=== PATIENT | female | born 1940 | race Caucasian/White ===

== ENCOUNTER → 2020-08-18 15:14 | Outpatient (BNVA) | payer MEDICARE, SELFPAY | PROVIDERS: PCP Internal Medicine; Visit Provider Urology | DX: Z13.89 Encounter for screening for other disorder (principal) | CPT/HCPCS: 99212 ==

== ENCOUNTER → 2020-11-10 14:02 | Outpatient (BNVA) | payer MEDICARE, SELFPAY | DX: N20.0 Calculus of kidney (principal); Z87.440 Personal history of urinary (tract) infections | CPT/HCPCS: 81002; 99212 ==

== ENCOUNTER 2021-04-06 15:07 | Outpatient (REF) | payer MEDICARE, SELFPAY ==
--- NOTE | ~2021-04-06 | US_ITS ---
EXAMINATION: US RETROPERITONEAL LIMITED (RENAL ONLY) CLINICAL INFORMATION: Calculus of kidney. COMPARISON: US retroperitoneal limited (renal only) 05/07/2018 and 03/21/2017. TECHNIQUE: Real-time imaging of the kidneys. FINDINGS: RIGHT KIDNEY: 8.8 x 3.4 x 4.2 cm (SAG x AP x TRV). The kidney is normal in size, contour, and echogenicity. There may be right renal cortical thinning or scarring. There are multiple at least 4 simple right renal cysts. The largest measures 1.4 x 1 x 1.2 cm in the upper pole. No renal calculi or hydronephrosis. LEFT KIDNEY: 7.0 x 3.5 x 3.5 cm (SAG x AP x TRV). The kidney is normal in size, contour, and echogenicity. There is left renal cortical thinning or scarring. There is a 1.3 x 1 x 1.1 cm simple cyst in the lower pole. No renal calculi or hydronephrosis. US/US renal BI IMPRESSION: Bilateral renal cortical thinning or scarring. Bilateral renal cysts, right greater than left.
== END 2021-04-06 15:08 | disposition home or self-care (01) ==
LOC: HO.US 15:07
PROVIDERS: PCP Internal Medicine
DX: N20.0 Calculus of kidney (principal)
CPT/HCPCS: 76775

== ENCOUNTER 2022-03-22 12:17 | Outpatient (REF) | payer MEDICARE, SELFPAY ==
--- NOTE | ~2022-03-22 | US_ITS ---
EXAMINATION: US RETROPERITONEAL LIMITED (RENAL ONLY) CLINICAL INFORMATION: Calculus of kidney. COMPARISON: Renal ultrasound 04/06/2021 and 05/07/2018. X-ray abdomen KUB 01/19/2011. TECHNIQUE: Real-time imaging of the kidneys. FINDINGS: RIGHT KIDNEY: 8.4 x 3.2 x 3.7 cm (SAG x AP x TRV). The kidney is normal in size, contour, and echogenicity. Renal cortical thickness is normal. No renal calculi or hydronephrosis. At the upper pole, a 1.3 cm in maximal diameter anechoic, simple cyst is seen. At the interpolar aspect, 8 mm, 8 mm and 5 mm anechoic, simple cysts are seen. At the lower pole, a 1.4 cm in maximal diameter anechoic, simple cyst is seen. LEFT KIDNEY: 8.4 x 4.5 x 3.4 cm (SAG x AP x TRV). The kidney is normal in size, contour, and echogenicity. Renal cortical thickness is normal. No renal calculi or hydronephrosis. At the upper pole, 1.2 cm and 9 mm in maximal diameter anechoic, simple cysts are seen. At the lower pole, a 9 mm in maximal diameter anechoic, simple cyst is seen. At the interpolar aspect, an 8 x 7 x 8 mm mildly complex cyst is seen, with solitary fine septation. This shows no mural nodularity or associated color Doppler flow. On the ultrasound examination dated 05/07/2018, this measured 0.9 x 1.0 x 1.1 cm. US/US renal BI IMPRESSION: 1. There are multiple bilateral renal cysts. The majority are benign, simple and require no imaging follow-up. A stable 1.2 cm in maximal diameter mildly complex left renal interpolar cyst is seen, with single fine septation. 2. No renal mass, calculus or hydronephrosis is seen bilaterally.
== END 2022-03-22 12:18 | disposition home or self-care (01) ==
LOC: HO.US 12:17
PROVIDERS: PCP Internal Medicine; Visit Provider Urology
DX: N20.0 Calculus of kidney (principal)
CPT/HCPCS: 76775

== ENCOUNTER → 2022-04-26 13:23 | Outpatient (BNVA) | payer MEDICARE, SELFPAY | PROVIDERS: PCP Internal Medicine; Visit Provider Nurse Practitioner Family | DX: N20.0 Calculus of kidney (principal); N28.1 Cyst of kidney, acquired | CPT/HCPCS: 99212 ==

== ENCOUNTER 2023-04-11 13:34 | Outpatient (REF) | payer MEDICARE, SELFPAY ==
--- NOTE | ~2023-04-11 | US_ITS ---
EXAMINATION: US RETROPERITONEAL LIMITED (RENAL ONLY) CLINICAL INFORMATION: Calculus of kidney. COMPARISON: Renal ultrasound 03/22/2022 and 04/06/2021. TECHNIQUE: Real-time imaging of the kidneys. Limited visualization due to bowel gas. FINDINGS: RIGHT KIDNEY: 9.5 x 4.6 x 4.0 cm (SAG x AP x TRV). Upper pole 1.2 cm and 0.9 cm cysts. Mid pole 1.3 cm cyst. There is no indication for follow-up imaging. Upper pole 1.9 x 1.2 x 1.5 cm cyst with benign features. A few additional smaller cysts, some of which are difficult to characterize due to small size and bowel gas. No hydronephrosis. No renal calculi. Limited visualization. LEFT KIDNEY: 9.3 x 3.8 x 4.0 cm (SAG x AP x TRV). No hydronephrosis. No renal calculi. Limited visualization. Upper pole 1.4 cm and 1.1 cm cysts. Lower pole 0.9 cm cyst and 0.7 cm cyst. There is no indication for follow-up imaging. Midpole 0.8 x 0.6 x 0.5 cm cyst measured 0.8 x 0.7 x 0.8 cm on 03/22/2022 and demonstrated a fine septation at that time which is less visible today, possibly due to bowel gas. This measured 0.9 x 1.0 x 1.1 cm on 05/07/2018. US/US renal BI IMPRESSION: No hydronephrosis. No renal calculi. Limited visualization.
== END 2023-04-11 13:35 | disposition home or self-care (01) ==
LOC: HO.US 13:34
PROVIDERS: PCP Internal Medicine; Visit Provider Nurse Practitioner Family
DX: N20.0 Calculus of kidney (principal); N28.1 Cyst of kidney, acquired
CPT/HCPCS: 76775

== ENCOUNTER 2023-04-25 13:29 | Outpatient (AMB) | payer MEDICARE, SELFPAY ==
--- NOTE | 2023-04-25 13:36 | MHC.OFFVIS ---
Intake Intake Visit Reasons: 1y/US(set) Intake Note: Patient is present for follow up nephrolithiasis [facility] Medications: none Blood thinner: none Overnight Stocker Required: No Accompanied by: Unknown Allergies sulfamethizole Adverse Reaction (Verified 04/25/23 14:04) Nausea Medication List - Last Reconciled 04/25/23 by LATA Valerio acetaminophen 1,000 mg PO TID alendronate 70 mg PO QWEEK apixaban (Eliquis) 5 mg PO BID ascorbic acid (vitamin C) 1 g PO DAILY atorvastatin 40 mg PO BEDTIME ergocalciferol (vitamin D2) (Vitamin D2) 1,250 mcg PO QWEEK fluticasone propionate 110 mcg/actuation (Flovent HFA) 1 puff inhalation BID mupirocin 2% topical BID nifedipine ER 30 mg PO DAILY pregabalin 100 mg PO DAILY sennosides-docusate sodium 8.6-50 mg 1 tab PO BID PRN tiotropium bromide 1.25 mcg/actuation (Spiriva Respimat) 2 puffs inhalation BEDTIME tramadol 50 mg PO Q4H PRN umeclidinium-vilanterol 62.5-25 mcg/actuation 1 ea inhalation DAILY valsartan 160 mg PO DAILY verapamil ER 120 mg PO DAILY HPI HPI Comments History of Present Illness Details Juliet is a pleasant 82-year-old female patient of Dr. Sparks who is accompanied by her at today's visit. She has a past medical history of shingles, arthritis, and GERD. She is being follow-up on today for her history of nephrolithiasis as well as renal cysts. Recent renal ultrasound results reviewed with the patient and her today. Right kidney with upper pole 1.2 cm and 0.9 cm cysts. Mid pole 1.3 cm cyst. There is no indication for follow-up imaging per radiology report. Upper pole 1.9 x 1.2 x 1.5 cm cyst with benign features. A few additional smaller cysts, some of which are difficult to characterize due to small size and bowel gas. No hydronephrosis. No renal calculi. Limited visualization. Left kideny with no hydronephrosis. No renal calculi. Limited visualization. Upper pole 1.4 cm and 1.1 cm cysts. Lower pole 0.9 cm cyst and 0.7 cm cyst. There is no indication for follow-up imaging per radiology report. In discussion with the patient today she discusses her recent fall and her recent stay at [facility] for rehab. She reports she continues to follow-up with orthopedics for ongoing right shoulder pain. She discusses feeling she has been unable to perform shoulder exercises at home due to ongoing pain. She has recently been started on tramadol and has found this somewhat helpful. In discussion with the patient today regarding her urological issues and concerns she does report feeling somewhat bothered symptoms of urinary urgency, urinary frequency, and episodes of incontinence if not near a bathroom. However, she feels given her decreased mobility over the last few months this has contributed to her ability to get to the bathroom in time. She describes lower urinary tract symptoms to be variable. She otherwise denies hematuria, dysuria, foul smelling urine, changes to urinary stream, flank pain, fever, and or chills. Discussed lifestyle modifications to assist with urinary issues with timed/scheduled voiding, pelvic floor therapy, and or medications. In office urinalysis results reviewed with the patient today. She otherwise offers no other issues or concerns at this time. [facility] Medical History Shingles Arthritis GERD (gastroesophageal reflux disease) Arthritis Renal stones Surgical History History of surgery History of right hip replacement Family History Father No problems noted. Mother No problems noted. Social History Alcohol intake: never Patient Tobacco Use Status: Former Tobacco user Review of Systems Eyes Reports no additional complaints ENT Reports no additional complaints Card Reports no additional complaints Resp Reports no additional complaints GI Reports as per HPI Reports as per HPI Musc Reports as per HPI Neuro Reports no additional complaints Psych Reports no additional complaints Endo Reports no additional complaints Andre/Lymph Reports no additional complaints Aller/Immun Reports no additional complaints Physical Exam Const General: cooperative, healthy appearing, comfortable, no acute distress, well developed, alert and awake Nutritional Appearance: average body habitus and well nourished Orientation/consciousness: patient oriented x3 Limitations: ambulation with walker HEENT Head: Yes normocephalic Ears: hearing grossly normal bilaterally Eyes General: appearance normal, both eyes and all related structures Neck Neck: Yes normal visual inspection Chest Chest palpation & inspection: normal inspection of the chest Resp Effort & Inspection: normal respiratory effort and no cough Cardio Rate: regular rate Neuro General: patient oriented x3 Cognition (Neuro): normal cognition Gait exam (Neuro): Assistive device used (Ambulatory with a cane) Psych Appearance: grossly normal and well kempt Mental Status: mental status grossly normal Speech and movement: Normal speech and movement present Affect: normal affect Attitude: cooperative Thought process: Normal thought process present Insight: Fair insight present (Psych) Judgement: Fair judgement present (Psych) Results AMB Urinalysis, Automated UA Leukoctes 0 Jorge/uL Last Edit by [employer] on 04/25/23 14:03 UA Nitrite Negative Last Edit by [employer] on 04/25/23 14:03 UA Urobilinogen 0.2 mg/dL Last Edit by [employer] on 04/25/23 14:03 UA Protein 100 mg/dL Last Edit by [employer] on 04/25/23 14:03 UA pH 6.0 Last Edit by [employer] on 04/25/23 14:03 UA Blood 0 Gucci/uL Last Edit by [employer] on 04/25/23 14:03 UA Specific [place] 1.015 Last Edit by [employer] on 04/25/23 14:03 UA Ketone Negative Last Edit by [employer] on 04/25/23 14:03 UA Bilirubin 0 mg/dL Last Edit by [employer] on 04/25/23 14:03 UA Glucose 0 mg/dL Last Edit by [employer] on 04/25/23 14:03 Results Reviewed Results Reviewed: Laboratory Last Values Urine pH (Auto) 6.0 04/25/23 13:40 Specific [place] (Auto) 1.015 04/25/23 13:40 Urine Protein (Auto) 100 mg/dL 04/25/23 13:40 Glucose (UA)(Auto) 0 mg/dL 04/25/23 13:40 Urine Ketones (Auto) Negative 04/25/23 13:40 Urine Blood (Auto) 0 Gucci/uL 04/25/23 13:40 Urine Nitrite (Auto) Negative 04/25/23 13:40 Urine Bilirubin (Auto) 0 mg/dL 04/25/23 13:40 Urine Urobilinogen (Auto) 0.2 mg/dL 04/25/23 13:40 Leukocyte Esterase (Auto) 0 Jorge/uL 04/25/23 13:40 Date of Service: 04/11/23 EXAMINATION: US RETROPERITONEAL LIMITED (RENAL ONLY) FINDINGS: RIGHT KIDNEY: 9.5 x 4.6 x 4.0 cm (SAG x AP x TRV). Upper pole 1.2 cm and 0.9 cm cysts. Mid pole 1.3 cm cyst. There is no indication for follow-up imaging. Upper pole 1.9 x 1.2 x 1.5 cm cyst with benign features. A few additional smaller cysts, some of which are difficult to characterize due to small size and bowel gas. No hydronephrosis. No renal calculi. Limited visualization. LEFT KIDNEY: 9.3 x 3.8 x 4.0 cm (SAG x AP x TRV). No hydronephrosis. No renal calculi. Limited visualization. Upper pole 1.4 cm and 1.1 cm cysts. Lower pole 0.9 cm cyst and 0.7 cm cyst. There is no indication for follow-up imaging. Midpole 0.8 x 0.6 x 0.5 cm cyst measured 0.8 x 0.7 x 0.8 cm on 03/22/2022 and demonstrated a fine septation at that time which is less visible today, possibly due to bowel gas. This measured 0.9 x 1.0 x 1.1 cm on 05/07/2018. IMPRESSION: No hydronephrosis. No renal calculi. Limited visualization. Assessment & Plan Assessment & Plan (1) Renal cyst: Code(s): N28.1 - Cyst of kidney, acquired (2) Renal stones: Code(s): N20.0 - Calculus of kidney (3) Lower urinary tract symptoms: Code(s): R39.9 - Unspecified symptoms and signs involving the genitourinary system (4) Urinary frequency: Code(s): R35.0 - Frequency of micturition (5) Urinary urgency: Code(s): R39.15 - Urgency of urination Plan In office urinalysis results reviewed with the patient today; as noted above. Recent renal imaging results reviewed with the patient today; as noted above. Will continue with surveillance monitoring of nephrolithiasis as well as renal cysts. Discussed at length further treatment options for urinary urgency and urinary frequency; this was discussed at length. Patient reports lower urinary tract symptoms to be variable. She will continue with lifestyle modifications at this time. Discussed possible low-dose VESIcare. Discussed bladder triggers/irritants. Discussed timed/scheduled voiding. Continue to follow-up with orthopedics for ongoing shoulder discomfort. Discussed referral to pelvic floor therapy. Follow-up in 3 months with PVR; or sooner with any issues, concerns, and or questions. Orders: Orders AMB Urinalysis Automated 04/25/23 Z13.9 - Encounter for screening, unspecified Patient Instructions: The patient had an opportunity to ask questions regarding the treatment plan. All questions were answered. Physical exam, labs, and imaging were discussed and reviewed in detail. As well as risks, benefits, and discussion of treatment choices. No major barriers to understanding were identified. The patient expressed understanding and agreement with the above treatment plan. The patient was made aware they should contact our office by phone for worsening of their current condition, the appearance of new symptoms, or with any questions or concerns. Compliance is encouraged with any medications and follow up testing that is ordered. It is a privilege to be allowed the opportunity to participate in? your urological care.? Again, if you have any questions or concerns If you have any questions or concerns please do not hesitate to contact me. The office is [phone]. This note is constructed using voice recognition software. While every effort has been made to ensure accuracy flush tester errors may have been included. Yours sincerely, LATA Valerio Coding Level of Care Code Est Pt Level 4 (84401) Diagnoses Renal cyst N28.1 Renal stones N20.0 Lower urinary tract symptoms R39.9 Urinary frequency R35.0 Urinary urgency R39.15 Time Spent (min) 40
== END 2023-04-25 14:29 | disposition home or self-care (01) ==
PROVIDERS: Visit Provider Nurse Practitioner Family
DX: N28.1 Cyst of kidney, acquired (principal); N20.0 Calculus of kidney; R39.9 Unspecified symptoms and signs involving the genitourinary system; R35.0 Frequency of micturition; R39.15 Urgency of urination
CPT/HCPCS: 99214

== ENCOUNTER → 2023-04-25 13:29 | Outpatient (BNVA) | payer MEDICARE, SELFPAY | PROVIDERS: Visit Provider Nurse Practitioner Family | DX: N28.1 Cyst of kidney, acquired (principal); N20.0 Calculus of kidney; R39.9 Unspecified symptoms and signs involving the genitourinary system; R35.0 Frequency of micturition; R39.15 Urgency of urination | CPT/HCPCS: 81003; 99212 ==

== ENCOUNTER 2023-08-29 15:30 | Outpatient (AMB) | payer MEDICARE, SELFPAY ==
--- NOTE | 2023-08-29 15:31 | A.OFFVIS_ITS ---
Intake Visit Reasons: 3m/PVR Intake Note: Patient is present for follow up nephrolithiasis Urology Medications: none Blood thinner: none PVR: 29ml's Almond Sorter Required: No Accompanied by: Unknown Allergies sulfamethizole Adverse Reaction (Verified 08/30/23 15:00) Nausea Medication List - Last Reconciled 08/30/23 by KO Valerio-CHANTELLE acetaminophen 1,000 mg PO TID alendronate 70 mg PO QWEEK apixaban (Eliquis) 5 mg PO BID ascorbic acid (vitamin C) 1 g PO DAILY atorvastatin 40 mg PO BEDTIME ergocalciferol (vitamin D2) (Vitamin D2) 1,250 mcg PO QWEEK fluticasone propionate 110 mcg/actuation (Flovent HFA) 1 puff inhalation BID mupirocin 2% topical BID nifedipine ER 30 mg PO DAILY pregabalin 100 mg PO DAILY sennosides-docusate sodium 8.6-50 mg 1 tab PO BID PRN tiotropium bromide 1.25 mcg/actuation (Spiriva Respimat) 2 puffs inhalation BEDTIME tramadol 50 mg PO Q4H PRN umeclidinium-vilanterol 62.5-25 mcg/actuation 1 ea inhalation DAILY valsartan 160 mg PO DAILY verapamil ER 120 mg PO DAILY HPI Comments Details: Juliet is a pleasant 82-year-old female patient of Dr. Sparks who is accompanied by her at today's visit. She has a past medical history of shingles, arthritis, and GERD. She is being follow-up on today for her history of nephrolithiasis, renal cysts and ongoing lower urinary tract symptoms. In discussion with the patient today she reports recently being diagnosed with melanoma in his following up with is today Oncology. She discusses having had recent bone marrow biopsy noting possible melanoma and is following up to discussed further treatment options. She discusses feeling fatigued throughout the day and will nap and then has difficulty with falling and staying asleep. She reports feeling this is contributing to episodes of nocturia. Previous renal ultrasound 04/12 noted right kidney with upper pole 1.2 cm and 0.9 cm cysts. Mid pole 1.3 cm cyst. There is no indication for follow-up imaging per radiology report. Upper pole 1.9 x 1.2 x 1.5 cm cyst with benign features. A few additional smaller cysts, some of which are difficult to characterize due to small size and bowel gas. No hydronephrosis. No renal calculi. Limited visualization. Left kideny with no hydronephrosis. No renal calculi. Limited visualization. Upper pole 1.4 cm and 1.1 cm cysts. Lower pole 0.9 cm cyst and 0.7 cm cyst. There is no indication for follow-up imaging per radiology report. She reports she continues to follow-up with orthopedics for ongoing right shoulder pain and bilateral knee pain. In discussion with the patient today regarding her urological issues and concerns she does report feeling somewhat bothered by symptoms of urinary urgency, urinary frequency, and episodes of incontinence if not near a bathroom and nocturia. However, she feels they are mangeable and does not wish to undergo further treatment at this time. She discusses she would like to continue with lifestyle modifications with timed/scheduled voiding given decreased mobility and limiting fluids 2-3 hours prior to bed. She otherwise denies hematuria, dysuria, foul smelling urine, changes to urinary stream, flank pain, fever, and or chills. In office urinalysis results reviewed with the patient today. PVR 29ml's. She otherwise offers no other issues or concerns at this time. [facility] Medical History Shingles Arthritis GERD (gastroesophageal reflux disease) Arthritis Renal stones Surgical History History of surgery History of right hip replacement Family History Father No problems noted. Mother No problems noted. Social History Alcohol intake: never Patient Tobacco Use Status: Former Tobacco user Review of Systems Eyes Reports no additional complaints ENT Reports no additional complaints Card Reports no additional complaints Resp Reports no additional complaints GI Reports as per HPI Reports as per HPI Musc Reports as per HPI Neuro Reports no additional complaints Psych Reports no additional complaints Endo Reports no additional complaints Andre/Lymph Reports as per HPI Aller/Immun Reports no additional complaints Physical Exam Const General: cooperative, healthy appearing, comfortable, no acute distress, well developed, alert and awake Nutritional Appearance: average body habitus and well nourished Orientation/consciousness: patient oriented x3 Limitations: wheelchair HEENT Head: Yes normocephalic Ears: hearing grossly normal bilaterally Eyes General: appearance normal, both eyes and all related structures Neck Neck: Yes normal visual inspection Chest Chest palpation & inspection: normal inspection of the chest Resp Effort & Inspection: normal respiratory effort and no cough Cardio Rate: regular rate Neuro General: patient oriented x3 Cognition (Neuro): normal cognition Gait exam (Neuro): Assistive device used (Ambulatory with a cane) Psych Appearance: grossly normal and well kempt Mental Status: mental status grossly normal Speech and movement: Normal speech and movement present Affect: normal affect Attitude: cooperative Thought process: Normal thought process present Insight: Fair insight present (Psych) Judgement: Fair judgement present (Psych) Office Procedures Post Void Residual Post Residual Void Post Void Residual (PVR): 29 [id number] Void Residual by ultrasound Results AMB Urinalysis, Automated UA Leukoctes 0 Jorge/uL Last Edit by [employer] on 08/29/23 16:13 UA Nitrite Negative Last Edit by [employer] on 08/29/23 16:13 UA Urobilinogen 0.2 mg/dL Last Edit by [employer] on 08/29/23 16:13 UA Protein 30 mg/dL Last Edit by [employer] on 08/29/23 16:13 UA pH 6.0 Last Edit by [employer] on 08/29/23 16:13 UA Blood 10 Gucci/uL Last Edit by [employer] on 08/29/23 16:13 UA Specific [place] 1.010 Last Edit by [employer] on 08/29/23 16:13 UA Ketone Negative Last Edit by [employer] on 08/29/23 16:13 UA Bilirubin 0 mg/dL Last Edit by [employer] on 08/29/23 16:13 UA Glucose 0 mg/dL Last Edit by [employer] on 08/29/23 16:13 Results Reviewed Results Reviewed: Laboratory Last Values Urine pH (Auto) 6.0 08/29/23 16:11 Specific [place] (Auto) 1.010 08/29/23 16:11 Urine Protein (Auto) 30 mg/dL 08/29/23 16:11 Glucose (UA)(Auto) 0 mg/dL 08/29/23 16:11 Urine Ketones (Auto) Negative 08/29/23 16:11 Urine Blood (Auto) 10 Gucci/uL 08/29/23 16:11 Urine Nitrite (Auto) Negative 08/29/23 16:11 Urine Bilirubin (Auto) 0 mg/dL 08/29/23 16:11 Urine Urobilinogen (Auto) 0.2 mg/dL 08/29/23 16:11 Leukocyte Esterase (Auto) 0 Jorge/uL 08/29/23 16:11 Assessment & Plan Assessment & Plan (1) Renal cyst: Code(s): N28.1 - Cyst of kidney, acquired Category: Medical (2) Renal stones: Code(s): N20.0 - Calculus of kidney Category: Medical (3) Lower urinary tract symptoms: Code(s): R39.9 - Unspecified symptoms and signs involving the genitourinary system Category: Medical (4) Urinary frequency: Code(s): R35.0 - Frequency of micturition Category: Medical (5) Urinary urgency: Code(s): R39.15 - Urgency of urination Category: Medical Plan In office urinalysis results reviewed with the patient today; as noted above. PVR 29 mL. Discussed at length further treatment options for urinary urgency and urinary frequency; this was discussed at length. Patient reports lower urinary tract symptoms to be variable it will continue with lifestyle modifications at this time. Discussed possible low-dose VESIcare. Discussed bladder triggers/irritants. Discussed timed/scheduled voiding. Discussed importance of limiting fluids 2-3 hours prior to bed. Discussed referral to pelvic floor therapy. Follow-up in 3 months with PVR; or sooner with any issues, concerns, and or questions. Orders: Orders AMB Urinalysis Automated 08/29/23 Z13.9 - Encounter for screening, unspecified AMB Post Void Residual by ultrasound 08/29/23 R35.0 - Frequency of micturition Patient Instructions: The patient had an opportunity to ask questions regarding the treatment plan. All questions were answered. Physical exam, labs, and imaging were discussed and reviewed in detail. As well as risks, benefits, and discussion of treatment choices. No major barriers to understanding were identified. The patient expressed understanding and agreement with the above treatment plan. The patient was made aware they should contact our office by phone for worsening of their current condition, the appearance of new symptoms, or with any questions or concerns. Compliance is encouraged with any medications and follow up testing that is ordered. It is a privilege to be allowed the opportunity to participate in? your urological care.? Again, if you have any questions or concerns If you have any questions or concerns please do not hesitate to contact me. The office is [phone]. This note is constructed using voice recognition software. While every effort has been made to ensure accuracy weather forcaster errors may have been included. Yours sincerely, LATA Valerio Coding Level of Care Code Est Pt Level 3 (63327) Complex EM visit Add On G2211 Diagnoses Renal cyst N28.1 Renal stones N20.0 Lower urinary tract symptoms R39.9 Urinary frequency R35.0 Urinary urgency R39.15 CPT Codes Post Residual Void - PVR CPT Code: 79034-Bjll Void Residual by ultrasound ([id number])
== END 2023-08-29 16:25 | disposition home or self-care (01) ==
PROVIDERS: PCP Internal Medicine; Visit Provider Nurse Practitioner Family
DX: N28.1 Cyst of kidney, acquired (principal); N20.0 Calculus of kidney; R39.9 Unspecified symptoms and signs involving the genitourinary system; R35.0 Frequency of micturition; R39.15 Urgency of urination
CPT/HCPCS: 99213; G2211

== ENCOUNTER → 2023-08-29 15:30 | Outpatient (BNVA) | payer MEDICARE, SELFPAY | PROVIDERS: PCP Internal Medicine; Visit Provider Nurse Practitioner Family | DX: N28.1 Cyst of kidney, acquired (principal); N20.0 Calculus of kidney; R39.9 Unspecified symptoms and signs involving the genitourinary system; R35.0 Frequency of micturition; R39.15 Urgency of urination | CPT/HCPCS: 51798; 81003; 99212 ==